=== PATIENT | female | born 1965 | race Caucasian/White ===

== ENCOUNTER 2021-11-02 20:46 | Emergency (ER) | payer MEDICAID, SELFPAY ==
[2021-11-02 20:48] VITALS: BP 168/91; PULSE 75; RESP 15; TEMP 36.6; O2SAT 98; BMI 25.8
--- NOTE | 2021-11-02 21:01 | HMH.EDANIB ---
ED Disposition Clinical Impression: Dog bite Qualifiers: Encounter type: initial encounter Qualified Code(s): W54.0XXA - Bitten by dog, initial encounter Disposition: Home, Self-Care Condition on Discharge: Good Instructions: Animal Bites Additional Instructions: keep clean and see pcp for follow up Prescriptions: Amoxicillin/Potassium Clav [Augmentin 500mg tab] 500 mg PO TID #21 tab Transmission Status: Pending to [facility] Referrals: Provider,Referral, MD [Primary Care Provider] - - Critical Care Critical Care Time: No Attestation: On 11/02/21, the high probability of a clinically significant, sudden or life threatening deterioration of the following system(s) required my full and direct attention, intervention and personal management. The time I documented below is in addition to time spent performing reported procedures but includes the following listed in this critical care notation. Medical Decision Making - Medical Records Medical records reviewed: Yes: I reviewed the patient's medical records. - Constantin Inquiry Pt receiving controlled substance: No Vital Signs: 11/02/21 20:48 Temperature 97.8 F Temperature Source Oral Pulse Rate [Left Radial] 75 Respiratory Rate 15 Blood Pressure [Right Arm] 168/91 H Blood Pressure Mean [Right Arm] 116 Blood Pressure Source [Right Arm] Automatic Cuff Blood Pressure Position [Right Arm] Sitting 02 Sat by Pulse Oximetry 98 Oxygen Delivery Method Room Air Medical Decision Narrative: no sutures indicated Animal Bite HPI - General Chief Complaint: Animal Bite Stated Complaint: AO 11/02@2014Dog bite R Leg Time Seen by Provider: 11/02/21 21:01 Mode of Arrival: Ambulatory Source of Information: Patient, Spouse, Medical Record Limitations: No Limitations Description of Symptoms (Recalled from ER Triage Doc. by RN): DOG BITE TO RIGHT LOWER EXTREMITY. PT REPORTS IT WAS HER NEIGHBORS DOG. WOUND CLEANED PER MD UPON ARRIVAL. PT REPORTS THAT SHE HAD A TETANUS SHOT IN JUN 2021 - History of Present Illness HPI narrative: dog bite rt lower leg tonight - known animal - MD complaint: animal bite Onset (ago): minute(s) Animal: dog Description of animal: household pet, immunizations UTD, appeared well Mechanism: bite Right: lower leg Context: unprovoked Associated symptoms: none - Related Data Patient tetanus UTD: Yes Previous Rx's Medication Instructions Recorded Amoxicillin/Potassium Clav 500 mg PO TID #21 tab 11/02/21 [Augmentin 500mg tab] [facility] History - Hepatitis A Screen Attestation statement:: This patient has been screened for Hepatitis A risk factors. I have reviewed the patient's past medical history: Yes ROS Obtained: Yes All systems reviewed & no additional complaints - Constitutional Constitutional: Denies fever(s) - Eyes Eyes: Denies change in vision - ENT Ears, Nose, Mouth, and Throat: Denies sore throat - Cardiovascular Cardiovascular: Denies chest pain - Respiratory Respiratory: Denies shortness of breath - Gastrointestinal Gastrointestingal: Denies: abdominal pain - Genitourinary Female Genitourinary: Denies hematuria - Musculoskeletal Musculoskeletal: Denies joint pain - Integumentary/Breasts Skin/Breast: Reports as per HPI, Reports other ( bite ) - Neurologic Neurologic: Denies seizure-like activity Physical Exam - General General appearance: alert - Head Head exam: normocephalic - Eye Eye exam: Present: PERRL, EOMI - ENT ENT exam: Present: mucous membranes moist - Neck Neck exam: Present: trachea midline - Respiratory Respiratory exam: Absent: respiratory distress - Cardiovascular Cardiovascular exam: Present: regular rate - Abdominal Exam Abdominal exam: Present: soft - Expanded Lower Extremity Exam Right Lower leg exam: Present: tenderness, swelling, other (1x1 cm dog bite rt lower leg ) Neurovascular/Tendon exam: Absent: pulse defic
--- NOTE | 2021-11-02 21:12 | PC.NURSE ---
DOG BITE FORM FAXED.
[2021-11-02 21:13] VITALS: BP 154/72; PULSE 72; RESP 16; TEMP 36.6; O2SAT 99
== END 2021-11-02 21:14 | disposition home or self-care (01) ==
PROVIDERS: Emergency Provider Emergency Medicine
DX: S81.851A Open bite, right lower leg, initial encounter (principal); W54.0XXA Bitten by dog, initial encounter
CPT/HCPCS: 99282

== ENCOUNTER 2022-03-04 14:58 | Emergency (ER) | payer OTHER, MEDICAID, SELFPAY ==
[2022-03-04 15:00] VITALS: BP 165/85; PULSE 84; RESP 16; TEMP 36.8; O2SAT 98; BMI 25.8
--- NOTE | 2022-03-04 15:11 | XR_ITS ---
FINAL REPORT CLINICAL HISTORY: fall pain FINDINGS: Left knee Three views were obtained. There is no acute fracture or dislocation. No joint effusion is identified. The joint spaces appear normal. No soft tissue abnormality is identified. IMPRESSION: No acute process. Reviewed, Interpreted and Dictated by Jose Crowell III, MD Transcribed by Lauren Bah Authenticated and [facility]
--- NOTE | 2022-03-04 15:12 | HMH.EDFALL ---
Discharge Plan Disposition Patient Disposition: Home, Self-Care Condition: Good Chief Complaint: Fall Prescriptions Prescriptions: No Action amoxicillin-pot clavulanate 1 EACH tablet 500 mg PO TID Qty: 21 0RF Referrals Follow up/Referrals: Provider,MD Jules [Primary Care Provider] - See instructions Activity Restrictions/Add. Instructions Additional Instructions/Restrictions: Continue use Tylenol and ibuprofen for pain follow-up with your primary care return to activity as tolerated. Clinical Impressions Clinical Impression: Contusion of rib, Acute knee pain Instructions Patient Instructions: DI for Rib Contusion Discharge ED Provider: Tadeo Stevenson HPI General Chief Complaint: Fall Stated Complaint: [id number], left side, knee Time Seen by Provider: 03/04/22 15:12 Mode of Arrival: Ambulatory Limitations: No Limitations Description of Symptoms (Recalled from ER Triage Doc. by RN): pt advises she was at [employer] this am when she tripped over her shoe and fell. Pt c/o pain in left knee, left ribs and elbow. No obivous deformity noted during assessment History of Present Illness HPI Narrative: 56-year-old female presents with a fall after tripping over her feet mechanically negative LOC landing down on her left knee and her radio went into her left ribs. Pain is worse with movement she is able to ambulate states that it is 3 out of 10 at this time has not taken any medication. This occurred earlier this morning. No weakness or numbness to the feet or hands. No trouble breathing. Related Data Previous Rx's Medication Instructions Recorded amoxicillin 500 mg-potassium 500 mg PO TID #21 tabs 11/02/21 clavulanate 125 mg tablet Allergies Allergy/AdvReac Type Severity Reaction Status Date / Time No Known Allergies Allergy Verified 11/02/21 21:05 [facility] Social History Smoking Status: Current every day smoker alcohol intake: never current occupational status: employed Travel in the last 8 weeks: None ROS Obtained: Yes Systems reviewed as appropriate & no additional complaints except as documented Physical Exam General General appearance: alert and in no apparent distress Head Head exam: atraumatic Eye Eye exam: Present normal appearance ENT ENT exam: Present mucous membranes moist Neck Neck exam: Present trachea midline Chest Chest inspection: Present normal inspection, symmetric chest wall rise and tenderness (Left lateral sixth and seventh rib tenderness) Respiratory Respiratory exam: Absent respiratory distress Cardiovascular Cardiovascular exam: Present regular rate Abdominal Exam Abdominal exam: Absent distention Neurological Exam Neurological exam: Present alert and oriented X3 Skin Skin exam: Present warm, dry and intact Medical Decision Making Medical Records Medical records reviewed: Yes I reviewed the patient's medical records. Constantin Inquiry Pt receiving controlled substance: No Vital Signs: 03/04/22 15:00 Temperature 98.3 F Temperature Source Oral Pulse Rate [Right] 84 Respiratory Rate 16 Blood Pressure [Right Arm] 165/85 H Blood Pressure Mean [Right Arm] 111 Blood Pressure Source [Right Arm] Automatic Cuff Blood Pressure Position [Right Arm] Sitting 02 Sat by Pulse Oximetry 98 Oxygen Delivery Method Room Air Orders (Tests/Meds): ED MEDICATIONS Discontinued Medications Generic Name Dose Route Start Last Admin Trade Name Freq PRN Reason Stop Dose Admin Ketorolac Tromethamine 30 mg 03/04/22 15:45 03/04/22 15:58 Ketorolac 30mg/Ml Vial IM 03/04/22 15:46 30 mg ONCE ONE Administration ORDERS Category Date Time Status Knee XR left 3 views [XR knee LT 3V] Stat Exams 03/04/22 15:11 Completed XR ribs LT min 3V w CXR1V Stat Exams 03/04/22 15:18 Completed Radiology Data #1: Image(s): Chest and Knee Image Reviewed: Yes I have reviewe
--- NOTE | 2022-03-04 15:18 | XR_ITS ---
FINAL REPORT CLINICAL HISTORY: fall FINDINGS: A single view of the chest with 3 views of the ribs were obtained. There is no acute cardiopulmonary process. No pneumothorax is identified. There is irregularity of the left 9th lateral rib, favor a chronic fracture. No definite acute fracture is identified. IMPRESSION: No definite acute fracture. Reviewed, Interpreted and Dictated by Jose Crowell III, MD Transcribed by Lauren Bah Authenticated and [facility]
--- NOTE | 2022-03-04 15:18 | PC.NURSE ---
pt to rad
--- NOTE | 2022-03-04 15:55 | PC.NURSE ---
rounded on pt at this time. Updated pt on POC. No other needs at this time
[2022-03-04 16:44] VITALS: BP 160/82; PULSE 80; RESP 18; TEMP 36.7; O2SAT 98
== END 2022-03-04 16:45 | disposition home or self-care (01) ==
PROVIDERS: Emergency Provider Student in an Organized Health Care Education/Training Program
DX: M25.562 Pain in left knee (principal); M25.522 Pain in left elbow; R07.81 Pleurodynia; F17.200 Nicotine dependence, unspecified, uncomplicated; W01.198A Fall on same level from slipping, tripping and stumbling with subsequent striking against other object, initial encounter; Y99.0 Civilian activity done for income or pay
CPT/HCPCS: 71101; 73562; 96372; 99284